=== PATIENT | female | born 1985 | race Caucasian/White ===

== ENCOUNTER 2017-06-27 05:26 | Day surgery (SDC) | payer BC ==
[~2017-06-27] VITALS: Ht 152.4 cm; Wt 64.4 kg
--- NOTE | ~2017-06-27 | O ---
[address] [address] OPERATIVE REPORT Name: NICK TAYLOR Room #: DEP [facility].#: [id number] Admission: 06/27/17 Attend Phys: Edward Brannon MD Discharge: 06/27/17 Date of : 85 Report #: [id number] THIS REPORT FOR: //name// CC: SORAYA Brannon DATE OF SERVICE: 06/27/2017 SERVICE: Orthopedics. FACILITY: [facility] SURGEON: Edward Brannon MD. 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 PREOPERATIVE DIAGNOSES: 1. Left hip pain. 2. Left hip femoroacetabular impingement. 3. Status post previous left hip arthroscopy at an outside facility. POSTOPERATIVE DIAGNOSES: 1. Combined-type left hip impingement. 2. Left hip pain. 3. Left hip labral tear. 4. Status post previous left hip arthroscopy at outside location. PROCEDURES: 1. Left hip arthroscopic subspine (extra-articular) acetabuloplasty. 2. Left hip arthroscopic labral repair. 3. Left hip arthroscopic Cam osteochondroplasty. 4. Revision of left hip arthroscopy. ESTIMATED BLOOD LOSS: 5 mL. TRACTION TIME: One hour 10 minutes. COMPLICATIONS: None. DRAINS: None. SPECIMENS: None. FINDINGS: 1. Intact labral repair with 2 previous suture anchors visualized. 2. More anterior labral tear noted. Additional anchor placed at the 11:[address] [address] OPERATIVE REPORT Name: NICK TAYLOR Room #: DEP [facility].#: [id number] Admission: 06/27/17 Attend Phys: Edward Brannon MD Discharge: 06/27/17 Date of : 85 Report #: [id number] position with a Reji NanoTack knotless suture anchor. 3. Very large subspine lesion noted on imaging, addressed with direct arthroscopic and fluoroscopic confirmation. 4. Residual Cam lesion at the far lateral and far anterior positions, treated with resection. Alpha angle of 58 degrees. HISTORY AND INDICATIONS: The patient is a 31-year-old female, who is status post left hip arthroscopy in May of 2016, who had initial excellent relief from her surgery, but then developed worsening symptoms back to the preoperative condition. She had imaging that indicated the labral repair appeared to be intact, but she had findings suggestive of a large subspine pincer lesion representing extra-articular hip impingement. The risks, benefits, alternatives and indications for surgery were discussed with her after she had failed conservative measures, which included rest, activity modification, physical therapy, intra-articular cortisone injection and oral medications. All of these were pursued for up to 6 months or more. . The risks, benefits, alternatives and indications for surgery were discussed with her in detail. Risks include but not limited to pain, bleeding, infection, injury to nerves or blood vessels, persistent pain despite surgical intervention, failure of any repairs, reconstruction, progression of any preexisting chondral injury, stiffness, need for further surgery as well as complications related to anesthesia such as stroke, heart attack, pulmonary complications, thromboembolic disease and . Despite these risks, she wished to proceed. DESCRIPTION OF PROCEDURE: After the left lower extremity was correctly identified in the preoperative holding area as the operative extremity, the patient underwent placement of a single shot regional nerve block by the anesthesia team. She was then taken to the operating room and placed supine on the operating table. General endotracheal anesthesia was induced without complication. Prophylactic antibiotics were administered. She was padded appropriately. Traction boots were applied to bilateral lower extremities and the femoral head and neck junction was evaluated. There was evidence of a very well done Cam osteoplasty, but at the far superolateral portion of it, the alpha angle was approximately 58 degrees and there was some increased cortical-appearing bone here, which was considered potential Cam for later arthroscopic assessment. We confirmed that adequate traction could be applied across the left hip and let traction down. Left leg was prepped and draped in standard sterile fashion. Time-out procedure was performed. Traction was applied to the left lower extremity. Total traction time was 1 hour 10 minutes. Standard anterolateral viewing portal followed by mid anterior working portal was established and then transverse capsulotomy was performed. There were some adhesions at the 3 o'clock position between the labrum and the capsule and this was released bluntly. The previous labral repair was very healthy and in good condition and remained healed. However, there was prominent [address] [address] OPERATIVE REPORT Name: NICK TAYLOR Room #: DEP [facility] [place] Joseph#: [id number] Admission: 06/27/17 Attend Phys: Edward Brannon MD Discharge: 06/27/17 Date of : 85 Report #: [id number] amount of bone on the acetabular side, directly above the labral tear, which correlated with the CT scan and the MRI as well as her x-rays, which were obtained preoperatively. The capsule was gently reflected off the dorsal side of the labrum, exposing the subspine acetabular bony lesion and then this was recessed with a bur, completing the contouring along the medial aspect and lateral aspects of the subspine and confirming fluoroscopy the location. The more anterior portion of the labrum, which was anterior to the previous repair and medial, was unstable and so a single suture anchor repair was performed with a knotless suture anchor to restore the labrum in anatomic position and restore stability. The articular cartilage was intact on the acetabulum as well as the femoral head. After the acetabular side work was completed, the traction was let down. The Cam resection was evaluated and the overall Cam contouring was appropriate in appearance; however, the most medial and lateral edges had increased alpha angle with some increased corticated bone and with the lateral position of the previous labral tear, I wanted to minimize any potential impingement and so a revision Cam osteoplasty was performed on the femoral head and neck junction, over the top, completing and contouring and making more comprehensive Cam resection and then the contouring was completed on the medial aspect of the femoral head and neck junction as well, again using the bur. The bony debris was lavaged out of the hip and then the capsule was closed with a total of four #2 Vicryl sutures, providing good capsular repair. The instruments were removed from the hip. Final x-rays were taken prior to capsular closure to ensure good Cam resection and then the portal sites were closed with a deep followed by superficial 3-0 Monocryl suture. Sterile dressing was applied. The patient was awakened from anesthesia and taken to recovery room in stable condition. There were no complications and all counts were recorded as correct. <ELECTRONICALLY SIGNED> By: Edward Brannon MD 06/28/17 0018 [id number] Edward Brannon MD /nt
[~2017-06-27 05:26] MED LIST: [UNRECOGNIZED DRUG - OTHER] PO
[2017-06-27 07:00] VITALS: BP 107/62
[2017-06-27 12:59] VITALS: BP 107/62
== END 2017-06-27 14:02 | disposition home or self-care (01) ==
LOC: OR 05:26 → TBA 05:27 → OR 08:59
DX: S73.102A Unspecified sprain of left hip, initial encounter (principal); Z98.890 Other specified postprocedural states; X58.XXXA Exposure to other specified factors, initial encounter; Y93.89 Activity, other specified; Y92.89 Other specified places as the place of occurrence of the external cause; Y99.8 Other external cause status; M25.852 Other specified joint disorders, left hip
CPT/HCPCS: 50010; 50101; 50386; 51538; 52298; 52304; 55430; 56524; 56527; 57092; 62110; 62900; 70005